=== PATIENT | male | born 1995 | race Two or more races ===

== ENCOUNTER 2018-01-16 08:31 | Outpatient (CLI) | payer OTHER | END 2018-01-16 08:38 | disposition home or self-care (01) | LOC: RAD 501 08:31 | DX: M84.38XA Stress fracture, other site, initial encounter for fracture (principal) ==

== ENCOUNTER 2018-06-12 10:38 | Outpatient (CLI) | payer OTHER | END 2018-06-12 10:56 | disposition home or self-care (01) | LOC: TOM 10:38 | DX: S06.0X0A Concussion without loss of consciousness, initial encounter (principal) ==